=== PATIENT | male | born 1965 | race Caucasian/White ===

== ENCOUNTER 2021-08-10 15:11 | Inpatient (IN) | payer MEDICARE, OTHER ==
[~2021-08-10] VITALS: Ht 177.8 cm; Wt 146.0 kg
[2021-08-10 15:48] LABS: HEMOGLOBIN 16.9 gm/dl (14.0-17.5); RED BLOOD COUNT 5.91 M/UL (4.20-5.50); WHITE BLOOD COUNT 5.9 K/UL (4.5-11.0)
[2021-08-10 16:07] LABS: BUN/CREATININE RATIO 30 (0-10)
[2021-08-11 03:44] LABS: HEMOGLOBIN 16.4 gm/dl (14.0-17.5); RED BLOOD COUNT 5.61 M/UL (4.20-5.50)
[2021-08-11 04:16] LABS: BUN/CREATININE RATIO 38 (0-10)
[2021-08-13 10:35] LABS: BUN/CREATININE RATIO 38 (0-10)
[2021-08-14 07:04] LABS: HEMOGLOBIN 15.5 gm/dl (14.0-17.5); RED BLOOD COUNT 5.33 M/UL (4.20-5.50); WHITE BLOOD COUNT 8.9 K/UL (4.5-11.0)
[2021-08-14 07:27] LABS: BUN/CREATININE RATIO 28 (0-10)
[2021-08-14] MEDS ORDERED: LISINOPRIL2.5 MG PO (17:34)
[2021-08-14] MEDS ORDERED: MOBIC15 MG PO (17:35)
[2021-08-14] MEDS ORDERED: FENOFIBRATE54 MG PO (17:35)
[2021-08-14] MEDS ORDERED: METOPROLOL SUCC25 MG PO (17:35)
[2021-08-14] MEDS ORDERED: NOVOLOG FL100 UNIT/1 INJ (17:36)
[2021-08-14] MEDS ORDERED: LEVEMIR FL100 UNIT/1 INJ ×3 (17:37→17:38)
[2021-08-14] MEDS ORDERED: ZOLOFT100 MG PO (17:37)
[2021-08-14] MEDS ORDERED: HYDROCHLOROTHIA25 MG PO (17:38)
[2021-08-14] MEDS ORDERED: TRAMADOL HCL50 MG PO (17:39)
--- NOTE | 2021-08-15 13:20 | NUR ---
PT TRANSFERRED TO ICU PER MD ORDER
[2021-08-15 15:07] LABS: HEMOGLOBIN 14.8 gm/dl (14.0-17.5); RED BLOOD COUNT 5.18 M/UL (4.20-5.50); WHITE BLOOD COUNT 10.1 K/UL (4.5-11.0)
[2021-08-15 15:32] LABS: BUN/CREATININE RATIO 31 (0-10)
[2021-08-16 05:41] LABS: HEMOGLOBIN 13.9 gm/dl (14.0-17.5); RED BLOOD COUNT 4.99 M/UL (4.20-5.50); WHITE BLOOD COUNT 11.7 K/UL (4.5-11.0)
[2021-08-16 06:08] LABS: BUN/CREATININE RATIO 36 (0-10)
[2021-08-16 19:16] LABS: HEMOGLOBIN 14.4 gm/dl (14.0-17.5); RED BLOOD COUNT 4.93 M/UL (4.20-5.50); WHITE BLOOD COUNT 11.1 K/UL (4.5-11.0)
[2021-08-17 02:30] LABS: HEMOGLOBIN 13.1 gm/dl (14.0-17.5); RED BLOOD COUNT 4.57 M/UL (4.20-5.50); WHITE BLOOD COUNT 11.3 K/UL (4.5-11.0)
[2021-08-17 03:04] LABS: BUN/CREATININE RATIO 43 (0-10)
--- NOTE | 2021-08-17 10:52 | NUR ---
ZEMURON TURNED OFF AT 0930 PER MD REQUEST. PT IS TOLERATING WELL.
[2021-08-18 05:31] LABS: HEMOGLOBIN 13.7 gm/dl (14.0-17.5); RED BLOOD COUNT 4.76 M/UL (4.20-5.50)
[2021-08-18 06:23] LABS: BUN/CREATININE RATIO 46 (0-10)
[2021-08-19 07:15] LABS: HEMOGLOBIN 14.3 gm/dl (14.0-17.5); RED BLOOD COUNT 4.83 M/UL (4.20-5.50); WHITE BLOOD COUNT 14.9 K/UL (4.5-11.0)
[2021-08-20 04:27] LABS: HEMOGLOBIN 13.9 gm/dl (14.0-17.5); RED BLOOD COUNT 4.91 M/UL (4.20-5.50)
[2021-08-20 04:28] LABS: WHITE BLOOD COUNT 18.7 K/UL (4.5-11.0)
[2021-08-21 05:10] LABS: HEMOGLOBIN 13.5 gm/dl (14.0-17.5); RED BLOOD COUNT 4.74 M/UL (4.20-5.50); WHITE BLOOD COUNT 21.2 K/UL (4.5-11.0)
[2021-08-22 05:39] LABS: HEMOGLOBIN 12.9 gm/dl (14.0-17.5); RED BLOOD COUNT 4.49 M/UL (4.20-5.50)
== END 2021-08-23 02:30 | disposition short-term general hospital (02) | DRG 207 ==
LOC: ER1 15:11 → CDU 16:37 → CCU 16:37 → PROG CARE 16:37 → CCU 08-15 13:19
PROVIDERS: Emergency Medicine; Internal Medicine; Internal Medicine Pulmonary Disease; ADMIT Internal Medicine
PROC: XW033E5 Introduction of Remdesivir Anti-infective into Peripheral Vein, Percutaneous Approach, New Technology Group 5 (ICD-10-PCS; 2021-08-10)
PROC: 3E0333Z Introduction of Anti-inflammatory into Peripheral Vein, Percutaneous Approach (ICD-10-PCS; 2021-08-10)
PROC: 5A09357 Assistance with Respiratory Ventilation, Less than 24 Consecutive Hours, Continuous Positive Airway Pressure (ICD-10-PCS; 2021-08-10)
PROC: 5A0945A Assistance with Respiratory Ventilation, 24-96 Consecutive Hours, High Flow/Velocity Cannula (ICD-10-PCS; 2021-08-11)
PROC: 8E0ZXY6 Isolation (ICD-10-PCS; 2021-08-11)
PROC: 3E0G76Z Introduction of Nutritional Substance into Upper GI, Via Natural or Artificial Opening (ICD-10-PCS; 2021-08-11)
PROC: XW033H5 Introduction of Tocilizumab into Peripheral Vein, Percutaneous Approach, New Technology Group 5 (ICD-10-PCS; 2021-08-15)
PROC: 5A1955Z Respiratory Ventilation, Greater than 96 Consecutive Hours (ICD-10-PCS; 2021-08-15)
PROC: 02HV33Z Insertion of Infusion Device into Superior Vena Cava, Percutaneous Approach (ICD-10-PCS; 2021-08-15)
PROC: B548ZZA Ultrasonography of Superior Vena Cava, Guidance (ICD-10-PCS; 2021-08-15)
PROC: 0BH17EZ Insertion of Endotracheal Airway into Trachea, Via Natural or Artificial Opening (ICD-10-PCS; 2021-08-15)
PROC: B24BZZ4 Ultrasonography of Heart with Aorta, Transesophageal (ICD-10-PCS; 2021-08-16)
PROC: 02HV33Z Insertion of Infusion Device into Superior Vena Cava, Percutaneous Approach (ICD-10-PCS; 2021-08-19)
PROC: B548ZZA Ultrasonography of Superior Vena Cava, Guidance (ICD-10-PCS; 2021-08-19)
PROC: 3E033XZ Introduction of Vasopressor into Peripheral Vein, Percutaneous Approach (ICD-10-PCS; principal; 2021-08-20)
DX: U07.1 COVID-19 (principal); J12.82 Pneumonia due to coronavirus disease 2019; A41.89 Other specified sepsis; J80 Acute respiratory distress syndrome; J15.9 Unspecified bacterial pneumonia; I26.99 Other pulmonary embolism without acute cor pulmonale; R57.8 Other shock; N17.0 Acute kidney failure with tubular necrosis; R65.21 Severe sepsis with septic shock; J10.01 Influenza due to other identified influenza virus with the same other identified influenza virus pneumonia; E66.2 Morbid (severe) obesity with alveolar hypoventilation; Z68.42 Body mass index [BMI] 45.0-49.9, adult; D68.59 Other primary thrombophilia; E87.2 Acidosis; E87.1 Hypo-osmolality and hyponatremia; E78.5 Hyperlipidemia, unspecified; E11.65 Type 2 diabetes mellitus with hyperglycemia; I10 Essential (primary) hypertension; E87.5 Hyperkalemia; G47.33 Obstructive sleep apnea (adult) (pediatric); Z79.4 Long term (current) use of insulin; Z23 Encounter for immunization; Z99.2 Dependence on renal dialysis
CPT/HCPCS: ECHO; 31500; 36415; 36600; 71045; 71275; 74018; 80048; 80053; 80202; 81001; 82550; 82553; 82803; 82962; 83036; 83605; 83735; 83880; 84132; 84484; 85025; 85027; 85379; 85610; 85730; 86140; 87040; 87070; 87077; 87081; 87186; 87205; 93005; 93306; 93970; 94002; 94003; 94640; 94660; 94664; 94760; 99285; C1752; C9113; G0378; J0692; J0696; J1100; J1644; J1650; J1720; J1940; J2250; J2370; J2704; J2765; J3370; J7030; J7042; J7050; J7070; P9047; Q0249; Q9967; U0002

== ENCOUNTER → 2021-11-24 | Outpatient (CLI) | payer MEDICARE ==
[~2021-11-24] MED LIST: FENOFIBRATE54 MG PO; HYDROCHLOROTHIA25 MG PO; LEVEMIR FL100 UNIT/1 INJ; LISINOPRIL2.5 MG PO; METOPROLOL SUCC25 MG PO; MOBIC15 MG PO; NOVOLOG FL100 UNIT/1 INJ; TRAMADOL HCL50 MG PO; ZOLOFT100 MG PO
== END ==
LOC: US 13:00
DX: N63.41 Unspecified lump in right breast, subareolar (principal)
CPT/HCPCS: 76641

== ENCOUNTER → 2022-02-23 | Outpatient (CLI) | payer MEDICARE | LOC: US 11:00 | DX: N63.41 Unspecified lump in right breast, subareolar (principal) | CPT/HCPCS: 76641-RT ==